=== PATIENT | female | born 2000 | race Caucasian/White ===

== ENCOUNTER 2020-06-29 06:55 | Observation (INO) | payer MEDICAID ==
[~2020-06-29] VITALS: Ht 162.6 cm; Wt 79.4 kg
[2020-06-29 06:55] VITALS: BP 146/96
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
[2020-06-29] MEDS ORDERED: NACL 0.9% 1,000 ML IV ONE ×2 (07:15→17:45)
--- NOTE | 2020-06-29 07:29 | NUR ---
Spoke to Lorraine from Poison Control-- Seizure precaution, EKG for QTC prolongation- replenish electrolytes, Aspirin, tylenol levels, CBC, CMP
[2020-06-29 07:35] LABS: BASOPHILS % (AUTO) 0.3 % (0.0-2.0); EOSINOPHILS % (AUTO) 0.1 % (0.0-4.0); HEMATOCRIT 38.3 % (36-48); HEMOGLOBIN 12.5 g/dL (12.0-16.0); LYMPHOCYTES # (AUTO) 1.8 K/uL (2.5-16.5); LYMPHOCYTES % (AUTO) 13.1 % (20.5-51.1); MEAN CORPUSCULAR HEMOGLOBIN 29 pg (27-31); MEAN CORPUSCULAR HGB CONC 33 g/dL (33-37); MONOCYTES # (AUTO) 0.5 K/uL (0.8-1.0); MONOCYTES % (AUTO) 3.8 % (1.7-9.3); NEUTROPHILS # (AUTO) 11.6 K/uL (1.8-7.7); NEUTROPHILS % (AUTO) 82.7 % (42.2-75.2); PLATELET COUNT (AUTO) 368 K/uL (140-450); RED BLOOD CELL COUNT(AUTO) 4.35 MIL/uL (4.20-5.40); RED CELL DISTRIBUTION WIDTH 13.4 % (11.6-13.7); WHITE BLOOD COUNT (AUTO) 14.1 K/uL (4.5-11.0)
--- NOTE | 2020-06-29 07:39 | NUR ---
22G IV placed to right hand, good blood return
--- NOTE | 2020-06-29 08:14 | NUR ---
UA collected via straight cath, given to mill laborer.
[2020-06-29] MEDS ORDERED: ONDANSETRON 4 MG/2 ML VIAL IVP ONE (08:30)
--- NOTE | 2020-06-29 08:33 | NUR ---
14f NG tube placed per MD order. Pt tolererated procedure well.
--- NOTE | 2020-06-29 08:42 | NUR ---
xray at bedside for ng tube placement
--- NOTE | 2020-06-29 10:08 | NUR ---
Pt sleeping, HOB elevated, VSS, will continue to monitor.
[2020-06-29 10:10] LABS: BARBITURATE, URINE NEGATIVE ng/ml (NEG <=200); BENZODIAZEPINE, URINE NEGATIVE ng/mL (NEG <=200); CANNABINOID, URINE POSITIVE ng/mL (NEG <=50); COCAINE, URINE NEGATIVE ng/mL (NEG <=300); OPIATE, URINE NEGATIVE ng/mL (NEG <=2000); PHENCYCLIDINE SCREEN,URINE NEGATIVE ng/mL (NEG <=25)
--- NOTE | 2020-06-29 10:19 | NUR ---
Soft-restraints removed at this time, no further need necessary will continue to monitor, ER Md will be made aware.
--- NOTE | 2020-06-29 10:29 | NUR ---
Spoke with pt mother Sheryl [phone] for updates.
--- NOTE | 2020-06-29 10:36 | NUR ---
Pt A&OX4 calm, cooperative, assisted on bedpan.
[2020-06-29 10:39] LABS: ANION GAP 20.1 (8-16); CARBON DIOXIDE 17.3 mmol/L (21-32); CHLORIDE 104 mmol/L (98-107); CREATININE 0.9 mg/dL (0.6-1.3); GFR ARICAN-AMERICAN 103 mL/min (>90); GLUCOSE 164 mg/dL (74-106); POTASSIUM 3.4 mmol/L (3.5-5.1); SODIUM SERUM 138 mmol/L (136-145); UREA NITROGEN, BLOOD 15 mg/dL (7-18)
[2020-06-29 10:43] LABS: ALBUMIN 4.3 g/dL (3.4-5.0); ASPARTATE AMINOTRANSFERASE 14 U/L (15-37); TOTAL BILIRUBIN 0.2 mg/dL (0.0-1.0)
[2020-06-29 10:46] LABS: SALICYLATE < 2.8 mg/dL (2.8-20.0)
[2020-06-29 10:47] LABS: ACETAMINOPHEN < 0.5 ug/ml (10-30)
--- NOTE | 2020-06-29 10:54 | NUR ---
Obtained SUGAR RIZVI swab, walked to lab.
[2020-06-29] MEDS ORDERED: ONDANSETRON 4 MG ODT PO ONE (12:30)
--- NOTE | 2020-06-29 12:36 | NUR ---
IV d/c patient removed iv from right hand.
--- NOTE | 2020-06-29 13:00 | NUR ---
IV established 22g to left wrist, good blood return.
--- NOTE | 2020-06-29 13:30 | NUR ---
Psychologist on phone with pt for evaluation. Spoke with pt mother zoila for updates.
--- NOTE | 2020-06-29 14:03 | NUR ---
Pt resting, eyes closed. VSS will continue to monitor.
--- NOTE | 2020-06-29 14:50 | NUR ---
[employer] Officer Ricardo is evaluating the patient for 5150 hold at bedside.
--- NOTE | 2020-06-29 16:07 | NUR ---
Pt sleeping, visible rise and fall of chest, VSS, will continue to monitor.
--- NOTE | 2020-06-29 16:20 | NUR ---
Spoke with Mariama from poison control for updates on pt current status.
--- NOTE | 2020-06-29 16:32 | NUR ---
[facility] has received packet. Will begin placement.
--- NOTE | 2020-06-29 16:44 | NUR ---
Packet referred to the following facilities: [facility] S[facility] [place]
[2020-06-29] MEDS ORDERED: ACETAMINOPHEN 325 MG TAB PO ONE (18:10)
--- NOTE | 2020-06-29 18:39 | NUR ---
Pt repositioned for comfort, hob elevated for aspiration precautions. VSS, will continue to monitor.
[2020-06-29 19:05] LABS: ANION GAP 16.4 (8-16); CARBON DIOXIDE 22.1 mmol/L (21-32); POTASSIUM 3.5 mmol/L (3.5-5.1)
--- NOTE | 2020-06-29 19:16 | NUR ---
GAVE REPORT TO DOUGIE AGRCIA, TRANSFERED ALL CARE AT THIS TIME.
--- NOTE | 2020-06-29 19:36 | NUR ---
REPORT RECEIVED FROM BRENNAN CONSTANTINO
--- NOTE | 2020-06-29 19:51 | NUR ---
PT RESTING QUIETLY IN HER BED, CALM AND COOPERATIVE. REMAINS ON BEDSIDE MONITOR.
[2020-06-29] MEDS ORDERED: METOCLOPRAMIDE 10 MG/2 ML INJ VIAL ONE (22:24)
--- NOTE | 2020-06-29 22:39 | NUR ---
PT HAVING NAUSEA AND VOMITING, MD CHE AWARE AND NEW ORDER FOR REGLAN ORDERED.
[2020-06-29] MEDS ORDERED: METOCLOPRAMIDE 10 MG/2 ML INJ VIAL IM SCH (22:40)
--- NOTE | 2020-06-29 23:00 | NUR ---
PT SLEEPING AT THIS TIME. NO MORE VOMITING
--- NOTE | 2020-06-29 23:48 | NUR ---
SPOKE TO SCHOOL SUPERVISOR FROM [facility], JV. PROVIDED ALL NECESSARY INFORMATION.
--- NOTE | 2020-06-30 01:31 | NUR ---
[facility] REQUESTING NOVEL COVID SWAB FOR PT.
--- NOTE | 2020-06-30 02:03 | NUR ---
Call Center faxed intake for [facility] , awaiting for COVID results , then admit to [facility] , TERRENCE Santos made aware.
--- NOTE | 2020-06-30 02:11 | NUR ---
RETURN CALL FROM GÓMEZ MARINELLI. TOLD PT CAN BE TRANSFERRED TO [facility] PENDING COVID RESULT. PRIMARY RN AWARE
--- NOTE | 2020-06-30 02:25 | NUR ---
NOVEL COVID SWAB COLLECTED AND WALKED TO LAB
--- NOTE | 2020-06-30 03:32 | NUR ---
[facility] made ER aware pt is to be admitted at [facility] , considering Covid results are negative, ER proof clerk Danielle aware .
--- NOTE | 2020-06-30 06:14 | NUR ---
[facility] IN[facility] CALLED SAYING THEY ARE ABLE TO TAKE PT. ADVISED PT IS COMING IN INPT FOR MED/SURG DUE TO PT HAVING CONTINUED VOMITING. THEY SAID ONCE PT IS CLEARED MEDICALLY THEY WILL TAKE HER.
--- NOTE | 2020-06-30 07:14 | NUR ---
Pt report given to JEN CONSTANTINO. Transfer of care at this time.
--- NOTE | 2020-06-30 07:15 | NUR ---
Received report from DOUGIE Zheng, care transfered to tx at this time.
--- NOTE | 2020-06-30 07:20 | NUR ---
Pt sleeping repositioned for comfort, VSS, will continue to monitor.
--- NOTE | 2020-06-30 07:39 | NUR ---
Spoke with Sheryl, pt mother for pt updates.
[2020-06-30] MEDS ORDERED: POTASSIUM CHLORIDE 10 MEQ TABER PO PRN (08:30)
[2020-06-30] MEDS ORDERED: ZOLPIDEM 5 MG TAB PO PRN (08:30)
[2020-06-30] MEDS ORDERED: ONDANSETRON 4 MG/2 ML VIAL IM/IVP PRN (08:30)
[2020-06-30] MEDS ORDERED: HYDROcodone/APAP 7.5/325 MG 1 TAB PO PRN (08:30)
[2020-06-30] MEDS ORDERED: DOCUSATE SODIUM 100 MG GELCAP PO PRN (08:30)
[2020-06-30] MEDS ORDERED: NACL 0.9% 1,000 ML IV SCH (08:30)
[2020-06-30] MEDS ORDERED: guaiFENesin DM 200/20 MG-10 ML 10 ML UDC PO PRN (08:30)
[2020-06-30] MEDS ORDERED: ACETAMINOPHEN 325 MG TAB PO PRN (08:30)
[2020-06-30] MEDS ORDERED: PANTOPRAZOLE 40 MG TABEC PO SCH (09:00)
--- NOTE | 2020-06-30 09:14 | NUR ---
20G IV placed to right ac, blood drawn and given to phleb with good blood return
[2020-06-30 09:23] LABS: BASOPHILS # (AUTO) 0.1 K/uL (0.00-0.22); BASOPHILS % (AUTO) 0.6 % (0.0-2.0); EOSINOPHILS % (AUTO) 0.1 % (0.0-4.0); HEMATOCRIT 40.6 % (36-48); HEMOGLOBIN 13.2 g/dL (12.0-16.0); LYMPHOCYTES % (AUTO) 22.2 % (20.5-51.1); MEAN CORPUSCULAR HEMOGLOBIN 29 pg (27-31); MEAN CORPUSCULAR HGB CONC 33 g/dL (33-37); MEAN CORPUSCULAR VOLUME 88.2 fL (80-94); MONOCYTES # (AUTO) 0.5 K/uL (0.8-1.0); MONOCYTES % (AUTO) 5.5 % (1.7-9.3); NEUTROPHILS # (AUTO) 6.6 K/uL (1.8-7.7); NEUTROPHILS % (AUTO) 71.6 % (42.2-75.2); PLATELET COUNT (AUTO) 371 K/uL (140-450); RED CELL DISTRIBUTION WIDTH 13.5 % (11.6-13.7); WHITE BLOOD COUNT (AUTO) 9.2 K/uL (4.5-11.0)
[2020-06-30 09:50] LABS: PROTHROMBIN TIME 9.7 secs (10.8-13.4)
[2020-06-30] MEDS ORDERED: DOPPLER MC ONE (10:05)
[2020-06-30 10:09] LABS: CHOL/HDL RATIO 3.3 (1-4.5); FREE T4 (FREE THYROXINE) 1.36 ng/dL (0.76-1.46); MAGNESIUM 2.4 mg/dL (1.8-2.4); PHOSPHORUS 3.1 mg/dL (2.5-4.9); THYROID STIMULATING HORMONE 1.44 uIU/mL (0.34-3.74)
--- NOTE | 2020-06-30 10:32 | NUR ---
[facility] still aware of pt. Pending covid results
[2020-06-30 10:51] LABS: APPEARANCE,URINE HAZY (CLEAR); BILIRUBIN,URINE 1+ (NEGATIVE); BLOOD, URINE NEGATIVE (NEGATIVE); COLOR,URINE YELLOW (YELLOW); LEUKOCYTE ESTERASE ,URINE NEGATIVE (NEGATIVE); NITRITE, URINE NEGATIVE (NEGATIVE); UGLUCOSE NEGATIVE (NEGATIVE)
--- NOTE | 2020-06-30 10:58 | NUR ---
Dr. Parker at pt bedside.
--- NOTE | 2020-06-30 11:05 | NUR ---
Per Dr. Parker, call for psych consult by Dr. Mott.
[2020-06-30 11:35] LABS: RBC,URINE NONE SEEN /HPF (0-5)
--- NOTE | 2020-06-30 11:54 | NUR ---
SOCIAL WORK NOTE: BRIT CONTACTED RAUL FROM [facility] [phone]. PER RAUL, PATIENT IS ACCEPTED AT [facility] PENDING PCR COVID TEST RESULTS. BRIT WILL FOLLOW UP. Addendum: 06/30/20 at 1330 by Jason HANDLEY RAUL CONTACTED BRIT STATING THAT PATIENT WAS ACCEPTED AT [facility] - [address] [place] [address]. PATIENT WILL BE GOING TO ROOM [facility] UNDER ACCEPTING DR. AUSTIN. PHONE NUMBER TO REPORT [phone]. BRIT INFORMED DOUGIE LI. PER RAUL, ONCE RN PROVIDES REPORT, THEY WILL BE ABLE TO PROVIDE ETA FOR TRANSPORTATION. BRIT CONTACTED [facility] AND SET UP WILL CALL FOR TRANSPORTATION WITH [facility] . Addendum: 06/30/20 at 1332 by Jason HANDLEY BRIT SPOKE TO CHARGE NURSE WHO STATED SHE WOULD CONTACT [facility] ONCE ETA IS GIVEN TO SEND PATIENT TO [facility]. BRIT NOTIFIED RN OF WILL CALL THROUGH [facility] . RN STATED SHE WOULD CONTACT [facility] ONCE READY FOR TRANSPORT.
--- NOTE | 2020-06-30 12:00 | NUR ---
DISCHARGE PLANNING: CONTACTED DEAN CHANDRA OF [facility] TO FOLLOW UP IF THEY WILL AUTHORIZE [facility], NO ANSWER. LEFT MESSAGE. WILL FOLLOW UP. Addendum: 06/30/20 at 1400 by Charlene Swann CM AUBREE TO GET A HOLD OF DEAN ELLIS. PER DEAN CHANDRA SHE DID NOT RECEIVE ANY INFORMATION ON THIS PATIENT. INFORMED HER THAT I WILL SEND HER CLINICALS AND FACE SHEET. SHE STATED IF [facility] IS CONTRACTED WITH [facility] THEN SHE WILL CREATE THE AUTH PENDING CLINICAL REVIEW AND SAME WITH TRANSPORT AUTH. CONTACTED [facility], ABLE TO SPEAK TO RAUL. PER [facility] RAN THE ELIGIBILITY AND THEY ARE ABLE TO ACCEPT THE PATIENT. DEAN BENTON [facility] MADE AWARE. SHE STATED SHE WILL CALL ME BACK WITH THE AUTH. PRATEEK IN ED MADE AWARE. Addendum: 06/30/20 at 1515 by Charlene Swann CM CONTACTED DEAN CHANDRA OF [facility] AGAIN TO FOLLOW UP IF SHE RECEIVE THE CLINICALS I SENT HER AND TO FOLLOW UP WITH THE AUTH. SHE STATED SHE MIGHT HAVE BUT DID NOT GET THE CHANCE TO CHECK. SHE STATED SHE WILL BE TURNING OFF HER PHONE NOW BECAUSE IT IS 1700 HER TIME ([place] TIME). REFERRED THIS CASE TO KASSI MCKEE OF , [place] TO DC TO [facility] AND USE [facility]. WILL FOLLOW UP WITH JOANA FOR AUTH TOMORROW. PRATEEK PADILLA MADE AWARE. Addendum: 06/30/20 at 1629 by Charlene Swann RECEIVED A CALL FROM DEAN CHANDRA OF [facility] INFORMING ME THAT SHE WILL FAX AUTH TO [facility] AND PROVIDED ME WITH TRANSPORT AUTH [id number]. TRANSPORT AUTH PROVIDED TO DARLENE OF [facility]. DANNY ALBERTO MADE AWARE WELL.
--- NOTE | 2020-06-30 12:42 | NUR ---
Spoke with Tiff from poison control.
--- NOTE | 2020-06-30 13:19 | NUR ---
Spoke with Thai, social worker aide. [phone] told to [address] report to [facility] for pending transportation. Dr. Hassan will be admitting physician, room 147B. After report ask for transportation call back extension [phone]
--- NOTE | 2020-06-30 13:20 | NUR ---
Pt accepted to [facility]. Rm 147-B. Accepted by Dr. Hassan. Number for report [phone]
[2020-06-30] MEDS ORDERED: LAM200 PO (13:28)
--- NOTE | 2020-06-30 13:39 | NUR ---
Spoke with pt mother Sheryl, made aware for acceptance into [facility]. Charge nurse at [facility] will call back for report.
--- NOTE | 2020-06-30 14:17 | NUR ---
Spoke with Nusrat Friedman for report on pending transportation.
--- NOTE | 2020-06-30 15:55 | NUR ---
Patient to be transferred to [facility]. Is being transferred due to inpatient psych. Receiving facility has accepting physician and available space. ER physician has signed transfer form. Patient or responsible republican has agreed to transfer and signed form. Patient belongings inventoried and will be sent with patient. Copy of nursing notes, lab reports, EKG, Physicians Orders and X-rays to be sent with patient. Report called to DOUGIE Silverio at receiving facility. [facility] ambulance service has been called for transfer. ETA is 1hour 30 minutes.
[2020-06-30 18:23] VITALS: BP 142/79
[2020-07-01 08:07] LABS: T4 (THYROXINE) 11.2 ug/dL (4.5-12.0)
== END 2020-06-30 15:55 ==
LOC: MED 06:55 → MMU 06-30 00:27
PROVIDERS: ADMIT Family Medicine; ATTEND Family Medicine
DX: G92 Toxic encephalopathy (principal); Z20.828 Contact with and (suspected) exposure to other viral communicable diseases; R11.2 Nausea with vomiting, unspecified; R45.851 Suicidal ideations; R65.10 Systemic inflammatory response syndrome (SIRS) of non-infectious origin without acute organ dysfunction; E87.6 Hypokalemia; F31.9 Bipolar disorder, unspecified; Z79.899 Other long term (current) drug therapy
CPT/HCPCS: 31500; 36415; 71045; 80053; 80061; 80305; 81001; 82150; 83036; 83690; 83735; 83880; 84100; 84439; 84443; 84484; 84702; 85025; 85610; 85730; 87086; 87426; 93005; 96361; 96372; 96374; 99291; G0378; G0482; J2405; J2765; Q0162; U0003; 80048; 84436; 84479; G0480